=== PATIENT | female | born 1945 | race Caucasian/White ===

== ENCOUNTER → 2016-10-23 | Outpatient (CLI) | payer OTHER | END | disposition home or self-care (01) | LOC: PCVCCLINIC 15:40 | PROVIDERS: ATTEND Internal Medicine Cardiovascular Disease | DX: I45.10 Unspecified right bundle-branch block (principal); I44.0 Atrioventricular block, first degree; I25.10 Atherosclerotic heart disease of native coronary artery without angina pectoris; I73.9 Peripheral vascular disease, unspecified; I10 Essential (primary) hypertension; E78.1 Pure hyperglyceridemia; F17.200 Nicotine dependence, unspecified, uncomplicated; E11.9 Type 2 diabetes mellitus without complications; Z95.1 Presence of aortocoronary bypass graft; Z95.2 Presence of prosthetic heart valve; Z90.79 Acquired absence of other genital organ(s); Z79.82 Long term (current) use of aspirin; Z79.899 Other long term (current) drug therapy | CPT/HCPCS: 80061; 93005; G0463 ==

== ENCOUNTER → 2016-11-01 | Outpatient (CLI) | payer OTHER ==
--- NOTE | 2016-11-07 19:40 | PCVCIMAG ---
APPROVED REPORT Study performed: 11/01/2016 13:42:37 EXAM: Comprehensive 2D, Doppler, and color-flow Echocardiogram Status: routine Other Information Study Quality: Adequate Risk Factors: Cardiac Risk Factors: HTN Indications Aortic Valve Disease CAD Aortic valve replacement 2D Dimensions LVEF(%): 46.19 (>50%) IVSd: 13.20 (7-11mm)LVOT Diam: 21.20 (18-24mm) LVDd: 47.34 mm PWd: 12.59 (7-11mm)Ascending Ao: 32.12 (22-36mm) LVDs: 36.43 (25-40mm) Left Atrium: 48.30 (27-40mm) Aortic Root: 33.23 mm LV Single Plane 4CH: 52.04 % LV Single Plane 2CH: 52.21 %Lieberman's LVEF: 52.13 % Biplane EF: 53.2 % Volumes Left Atrial Volume (Systole) Single Plane 4CH: 40.14 mLSingle Plane 2CH: 57.62 mL LA ESV Index: 27.00 mL/m2 Aortic Valve AoV Peak Manish.: 2.27 m/s AO Peak Gr.: 20.69 mmHgLVOT Max P.73 mmHg AO Mean Gr.: 10.86 mmHgLVOT Mean P.44 mmHg AO V2 Mean: 1.55 m/sLVOT Max V: 0.83 m/s AO V2 VTI: 47.06 cmLVOT Mean V: 0.57 m/s STEVE (VTI): 1.45 [id number] V1 VTI: 19.40 cm STEVE Vmax: 1.28 cm2 SV (LVOT): 68.42 mL Mitral Valve E/A Ratio: 0.7 MV Decel. Time: 223.09 ms MV E Max Manish.: 0.72 m/s MV A Manish.: 1.03 m/s IVRT: 121.11 ms TDI E/Lateral E': 8.00E/Medial E': 18.60 Pulmonary Valve PV Peak Manish.: 0.79 m/sPV Peak Gr.: 2.50 mmHg Pulmonary Vein P Vein S: 0.30 m/sP Vein A: 0.38 m/s P Vein D: 0.42 m/sP Vein A Dur.: 159.2 msec P Vein S/D Ratio: 0.71 Tricuspid Valve TR Peak Manish.: 2.37 m/s TR Peak Gr.: 22.47 mmHg Left Ventricle The left ventricle is normal size. There is normal LV segmental wall motion. Mild concentric left ventricular hypertrophy. Left ventricular systolic function is within lower limits of normal. LVEF is 50-55%. Grade I - abnormal relaxation pattern. Right Ventricle The right ventricle is normal size. The right ventricular systolic function is normal. Atria The left atrium size is normal. The right atrium size is normal. Aortic Valve Normally functioning bioprosthetic valve in the aortic position. There is a prosthetic aortic valve prosthesis. The prosthetic aortic valve appears to open well. Mild aortic regurgitation. There is no evidence of aortic valve stenosis. Calculated aortic valve area is 1.3 cm2 with maximum pressure gradient of 21 mmHg and mean pressure gradient of 11 mmHg. Mitral Valve Moderate posterior mitral annular calcification. Moderate to severe mitral regurgitation There is normal mitral valve excursion. Tricuspid Valve The tricuspid valve is normal in structure. Trace tricuspid regurgitation with PAP of 29 mmHg. Pulmonic Valve The pulmonary valve is normal in structure. There is no pulmonic valvular regurgitation. Great Vessels The aortic root is normal in size. IVC is normal in size and collapses with >50% inspiration Pericardium There is no pericardial effusion. <Conclusion> The left ventricle is normal size. Mild concentric left ventricular hypertrophy. LVEF is 50-55%. Grade I - abnormal relaxation pattern. The right ventricle is normal size. The left atrium size is normal. Mild aortic regurgitation. There is no evidence of aortic valve stenosis. Calculated aortic valve area is 1.3 cm2 with maximum pressure gradient of 21 mmHg and mean pressure gradient of 11 mmHg. Moderate to severe mitral regurgitation There is no pericardial effusion.
== END | disposition home or self-care (01) ==
LOC: PCVCIMAG 13:46
PROVIDERS: ATTEND Internal Medicine Cardiovascular Disease
DX: I08.3 Combined rheumatic disorders of mitral, aortic and tricuspid valves (principal); I25.10 Atherosclerotic heart disease of native coronary artery without angina pectoris; I10 Essential (primary) hypertension; Z95.2 Presence of prosthetic heart valve; Z95.4 Presence of other heart-valve replacement
CPT/HCPCS: 93306

== ENCOUNTER → 2017-09-11 | Outpatient (CLI) | payer OTHER | END | disposition home or self-care (01) | LOC: PCVCCLINIC 10:41 | DX: I25.10 Atherosclerotic heart disease of native coronary artery without angina pectoris (principal); I10 Essential (primary) hypertension; E78.00 Pure hypercholesterolemia, unspecified; I35.0 Nonrheumatic aortic (valve) stenosis; I73.9 Peripheral vascular disease, unspecified; I70.1 Atherosclerosis of renal artery; R94.31 Abnormal electrocardiogram [ECG] [EKG]; F17.200 Nicotine dependence, unspecified, uncomplicated; I77.9 Disorder of arteries and arterioles, unspecified; Z95.1 Presence of aortocoronary bypass graft; Z79.82 Long term (current) use of aspirin | CPT/HCPCS: 80061; 93005; G0463 ==